=== PATIENT | male | born 1960 | race Caucasian/White ===

== ENCOUNTER 2019-03-19 10:54 | Emergency (ER) | payer OTHER ==
[2019-03-19 11:16] VITALS: BP 123/90; PULSE 94; TEMP 98.1; BMI 24.2
--- NOTE | 2019-03-19 11:27 | PDOC ---
History of Present Illness - General Chief Complaint: Urinary Problem Stated Complaint: PAIN Time Seen by Provider: 03/19/19 11:27 - History of Present Illness Initial Comments: 58 year old male with PMH of BPH, chronic low back pain and recent diagnosis of cystitis presenting for continued dysuria despite completion of ciprofloxacin 500 BID 3 days prior (03/16/2019). His symptoms started approximately 1.5 weeks prior with dysuria and lower back ache. He is now improved but still has lower back ache and had one episode of mild dysuria last night. He did see a urologist for a high PSA result last week but did not like that urologist so he wants to see a new one. We spoke to MARCUS Kaur who stated that the patient may be slightly anxious about his recent high PSA result and the idea that he could be at risk for prostate cancer. His cultures at the clinic were positive for E. COli sensitive for both cipro and macrobid. Patient denies fevers, chills, nausea, vomiting, diarrhea, or other symptoms. 03/19/19 11:52 Past History - Past Medical History Allergies/Adverse Reactions: Allergies Allergy/AdvReac Type Severity Reaction Status Date / Time No Known Allergies Allergy Verified 03/19/19 11:16 Home Medications: Ambulatory Orders Nitrofurantoin Monohyd/M-Cryst [Macrobid -] 100 mg PO BID #14 capsule 03/19/19 COPD: No Disorders: Yes (enlarged prostate) - Psycho Social/Smoking Cessation Hx Smoking History: Never smoked Hx Alcohol Use: No Drug/Substance Use Hx: No Review of Systems - Review of Systems Constitutional: No: Chills, Diaphoresis, Fever HEENTM: No: Eye Pain, Blurred Vision, Tearing Respiratory: No: Cough, Orthopnea, Shortness of Breath Cardiac (ROS): No: Chest Pain, Irregular Heart Rate, Lightheadedness, Palpitations ABD/GI: No: Diarrhea, Nausea, Vomiting : Yes: Burning, Dysuria. No: Discharge, Frequency Musculoskeletal: Yes: Back Pain. No: Joint Pain Integumentary: No: Bruising, Change in Color, Dryness, Erythema Neurological: No: Headache, Numbness Psychiatric: No: Anxiety, Depression Hematologic/Lymphatic: No: Anemia, Blood Clots, Easy Bleeding (chronic) *Physical Exam - Vital Signs Last Vital Signs Temp Pulse Resp BP Pulse Ox 98.1 F 94 H 16 123/90 97 03/19/19 11:13 03/19/19 11:13 03/19/19 11:13 03/19/19 11:13 03/19/19 11:13 - Physical Exam General Appearance: Yes: Nourished, Appropriately Dressed. No: Apparent Distress HEENT: positive: EOMI, SUMIT, Normal ENT Inspection, Normal Voice Neck: positive: Trachea midline, Normal Thyroid, Supple. negative: Tender, Rigid Respiratory/Chest: positive: Lungs Clear, Normal Breath Sounds. negative: Chest Tender, Respiratory Distress, Accessory Muscle Use Cardiovascular: positive: Regular Rhythm, Regular Rate Gastrointestinal/Abdominal: positive: Normal Bowel Sounds, Flat, Soft. negative : Tender Lymphatic: negative: Adenopathy, Tenderness Musculoskeletal: positive: Normal Inspection. negative: CVA Tenderness Extremity: positive: Normal Capillary Refill, Normal Inspection, Normal Range of Motion. negative: Tender Integumentary: positive: Normal Color, Dry, Warm Neurologic: positive: Fully Oriented, Alert, Normal Mood/Affect, Normal Response , Motor Strength 5/5 Medical Decision Making - Medical Decision Making 58 year old male with PMH of BPH and chronic low back pain presenting for continued dysuria and a second opinion from a urologist. Asymptomatic otherwise and VSS. Sent UA and UC then will discharge with macrobid as the cultures from his UA last week were sensitive to both. Patient is OK with this plan and will follow our instructions. 03/19/19 12:19 Discharge - Discharge Information Problems reviewed: Yes Clinical Impression/Diagnosis: Cystitis Condition: Stable Disposition: HOME - Admission No - Additional Discharge Information Prescriptions: Nitrofurantoin Monohyd/M-Cryst [Macrobid -] 100 mg PO BID #14 capsule - Follow up/Referral - Patient Discharge Instructions Patient Printed Discharge Instructions: DI for Acute Cystitis Additional Instructions: Debe franco carlos abntibiticos dos veces al da segn las indicaciones. Siga con el urlogo en esta hoja. Tienes que llamar para hacer tabby glenys. Vaya a oropeza clnica con Carlos Mishra si tiene ms preguntas. Regrese al ED si tiene algn problema emergente. Print Language: IRISH - Post Discharge Activity
--- NOTE | 2019-03-19 12:22 | PDOC ---
Documentation entered by Janice Triana SCRIBE, acting as scribe for Marisel Germain MD. Marisel Germain MD: This documentation has been prepared by the Kong morales Brenda, SCRIBE, under my direction and personally reviewed by me in its entirety. I confirm that the documentation accurately reflects all work, treatment, procedures, and medical decision making performed by me. Attending Attestation - Resident Resident Name: Alisia Vallejo - ED Attending Attestation I have performed the following: I have examined & evaluated the patient, The case was reviewed & discussed with the resident, I agree w/resident's findings & plan, Exceptions are as noted - HPI HPI: 03/19/19 12:15 Mr. Yossi Pagan is a 58 yo M who presents to the ER with a complaint of dysuria Pt has a h/o BPH, chronic low back pain and recent diagnosis of cystitis (he has had symptoms for approximately 1 week) He has been on ciprofloxacin 500 BID 3 days He has now improved but still has lower back ache and had one episode of mild dysuria last night. His cultures at the clinic were positive for E. COli sensitive for both cipro and macrobid. 03/19/19 11:52 - Physicial Exam PE: 03/19/19 12:20 GENERAL: The patient is in no acute distress. ENT: Ears normal, nares patent, oropharynx clear without exudates. Moist mucous membranes. NECK: Normal range of motion, supple LUNGS: Breath sounds equal, clear to auscultation bilaterally. No wheezes, and no crackles. HEART:Regular rate and rhythm, normal S1 and S2 without murmur, rub or gallop. ABDOMEN: Soft, nontender, normoactive bowel sounds. EXTREMITIES: Normal range of motion, no edema. NEUROLOGICAL: Cranial nerves II through XII grossly intact. Normal speech. No focal neurological deficits. SKIN: Warm, Dry, normal turgor, no rashes or lesions noted. 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
[2019-03-19 14:32] LABS: EPI CELLS 4.9 /HPF (0-5/HPF); HYALINE CASTS 172 /lpf (0-8); URINE APPEARANCE CLOUDY; URINE BACTERIA 4.5 /hpf (NEGATIVE); URINE BILIRUBIN 1+ (NEGATIVE); URINE COLOR DK YELLOW; URINE GLUCOSE (UA) NEGATIVE (NEGATIVE); URINE KETONE TRACE (NEGATIVE); URINE LEUK ESTERASE 1+ (NEGATIVE); URINE NITRITE NEGATIVE (NEGATIVE); URINE PROTEIN 1+ (NEGATIVE); URINE RBC 2 /hpf (0-4); URINE WBC 12 /hpf (0-5)
[2019-03-19 15:34] LABS: URINE CRYSTALS CALCIUM OXALATE /hpf
== END 2019-03-19 13:18 | disposition home or self-care (01) ==
LOC: JER 10:54
DX: N30.00 Acute cystitis without hematuria (principal); B96.89 Other specified bacterial agents as the cause of diseases classified elsewhere; N40.0 Benign prostatic hyperplasia without lower urinary tract symptoms
CPT/HCPCS: 81003; 87086; 99282-25